=== PATIENT | male | born 1975 | race Caucasian/White ===

== ENCOUNTER 2024-06-13 19:55 | Emergency (ER) | payer MEDICAID, SELFPAY ==
[2024-06-13 19:56] VITALS: BP 133/57; PULSE 66; RESP 18; TEMP 37.1; O2SAT 99; BMI 28.8
[2024-06-13 20:14] VITALS: O2SAT 99
--- NOTE | 2024-06-13 20:14 | RAD_ITS ---
EXAM: XR CHEST, 1 VIEW CLINICAL INDICATION: chest pain TECHNIQUE: Frontal view of the chest. COMPARISON: No relevant prior studies available. FINDINGS: LUNGS AND PLEURAL SPACES: Subtle bibasilar pulmonary opacities may be atelectasis, scarring, or pneumonia. No pneumothorax. No effusion. HEART: No significant abnormality. Cardiac silhouette not enlarged. MEDIASTINUM: Central airways and mediastinal contour are unremarkable. BONES/JOINTS: No significant abnormality. No acute fracture. SOFT TISSUES: No significant abnormality. RAD/Chest 1 View (Portable) IMPRESSION: Subtle bibasilar pulmonary opacities may be atelectasis, scarring, or pneumonia. Electronically Signed: Orion Walls DO at 21:04 EST ,
--- NOTE | 2024-06-13 20:14 | EKG12_ITS ---
Test Reason : CP Blood Pressure : */* mmHG Vent. Rate : 66 BPM Atrial Rate : 66 BPM P-R Int : 162 ms QRS Dur : 84 ms QT Int : 390 ms P-R-T Axes : 36 46 32 degrees QTcB Int : 408 ms Normal sinus rhythm Normal ECG Confirmed by JEREMY MEJIAS, MERLYN ([id number]), news assignment editor TIFFANIE GUTIERREZ ([id number]) on 06/14/2024 8:58:17 AM Referred By: BB Confirmed By: MERLYN LUNA MD
[2024-06-13 20:26] LABS: Absolute Lymphocyte Count 3.01 X10^3/uL (0.83-4.51); Absolute Neutrophil Count 3.6 X10^3/uL (2.0-7.7); Basophil# 0.03 X10^3/uL; Basophil% 0.4 % (0-1); Eosinophil# 0.21 X10^3/uL; Eosinophils% 2.7 % (0-5); Hematocrit 38.2 % (40-54); Hemoglobin 12.9 g/dL (13.0-16.5); Lymphocyte # 3.01 X10^3/ul (0.83-4.51); Lymphocyte % 38.7 % (19-41); Mean Corp Hgb Conc 33.8 g/dL (32-36); Mean Corpuscular Hgb 31.6 pg (27.0-32.0); Mean Corpuscular Volume 93.6 fL (80-94); Mean Platelet Vol. 8.6 fl (6.2-12.0); Monocyte# 0.91 X10^3/uL; Monocyte% 11.7 % (0-10); NRBC Flagged by Analyzer 0 % (0-5); Neutrophil # 3.58 X10^3/uL (2.7-7.7); Platelet Count 246 K/mm3 (150-450); RBC Distribution Width CV 14.2 % (11.6-14.6); RBC Distribution Width SD 49.1 fl (35.1-43.9); Red Blood Count 4.08 M/mm3 (4.6-6.2); White Blood Count 7.8 K/mm3 (4.4-11.0)
[2024-06-13 20:45] LABS: Anion Gap 4 (5-15); BUN 12 mg/dL (7-18); BUN/Creat Ratio 14.7 RATIO (10-20); Calcium,Total 9.4 mg/dL (8.5-10.1); Chloride 106 mmol/L (98-107); Creatinine, Serum 0.81 mg/dL (0.70-1.30); EST Glomerular Filtration Rate 107 mL/min (>60); Est Glom Filt Rate - Afr Amer 130 mL/min (>60); Estimated Creatinine Clearance 125.95 ml/min; Glucose 79 mg/dL (74-106); Potassium 4.1 mmol/L (3.5-5.1); Sodium Level 139 mmol/L (136-145); Troponin-I HS (w/2H Reflex) 3 pg/mL (3.0-78.0)
[2024-06-13 20:56] VITALS: BP 115/100; PULSE 71; RESP 18; O2SAT 98
[2024-06-13 21:00] VITALS: BP 106/74; PULSE 68; RESP 16; O2SAT 97
[2024-06-13 21:04] LABS: D-Dimer Quantitative (DVT/PE) 0.27 FEU/ug/m (0.27-0.49)
[2024-06-13 22:00] VITALS: BP 118/94; PULSE 55; RESP 19; O2SAT 95
--- NOTE | 2024-06-13 22:08 | EDS_ITS ---
HPI History of Present Illness Chief Complaint: Chest Pain Narrative Narrative: 49-year-old male [facility] from [facility] facility with complaint of right- sided chest pain. He states that he has pain upon inhalation and exhalation. Is described as sharp and stabbing. It started today at around 3:15 PM, over 7 hours ago. He did receive Maalox at around 315 which may have helped him. He denies any other symptoms or exacerbating or alleviating factors. Patient does have history of schizophrenia and tardive dyskinesia, recently started Austedo 4 days ago. [facility] Medical History Generalized anxiety disorder Bipolar II disorder Delusional disorder Schizophrenia Psychotic disorder Peripheral vascular disease Epilepsy TBI (traumatic brain injury) Major depressive disorder Dementia Home Medications ?Medication ?Instructions ?Recorded ?Last Taken ?Type atorvastatin 80 mg tablet (Lipitor) 80 mg PO DAILY 06/13/24 Unknown History benztropine 1 mg tablet 1 mg PO BID 06/13/24 Unknown History deutetrabenazine 12 mg tablet 12 mg PO DAILY tardive dyskinesia 06/13/24 Unknown History (Austedo) deutetrabenazine 18 mg 18 mg PO DAILY TD 06/13/24 Unknown History tablet,extended release 24 hr (Austedo XR) lamotrigine 200 mg tablet 200 mg PO DAILY 06/13/24 Unknown History (Lamictal) levetiracetam 750 mg tablet 750 mg PO BID 06/13/24 Unknown History (Keppra) lorazepam 0.5 mg tablet (Ativan) 0.5 mg PO BID agitation 06/13/24 Unknown History medroxyprogesterone 10 mg tablet 10 mg PO DAILY 06/13/24 Unknown History (Provera) risperidone 0.5 mg tablet 0.5 mg PO BID 06/13/24 Unknown History (Risperdal) Social History Smoking Status: Current every day smoker tobacco type: cigarettes ROS ROS ED ROS Narrative Review of systems mildly limited to TBI and psychiatric disorder. Patient endorses right-sided chest pain that can be pleuritic in nature. No nausea or vomiting, no shortness of breath, no fevers or chills, no cough. EXAM Physical Exam Narrative Exam Narrative: Afebrile. Vital signs noted. Nontoxic-appearing. Cardiovascular examination feels a regular rate and rhythm. Lungs are clear to auscultation bilaterally. Abdomen soft nontender with normal active bowel sounds. Neurological examination is nonfocal and nonlateralizing. Slight speech impediment, but patient understandable. Const Vital Signs: 06/13/24 19:56 06/13/24 20:14 06/13/24 20:56 Temperature 98.8 F Temperature Source Oral Pulse Rate 66 71 Respiratory Rate 18 18 Respiratory Effort Blood Pressure 133/57 H 115/100 H Blood Pressure Mean 82 105 Pulse Ox 99 99 98 Oxygen Delivery Method Room Air Room Air Room Air 06/13/24 21:00 06/13/24 21:19 06/13/24 22:00 Temperature Temperature Source Pulse Rate 68 55 L Respiratory Rate 16 19 H Respiratory Effort Normal Non-Labored Blood Pressure 106/74 118/94 H Blood Pressure Mean 84 102 Pulse Ox 97 95 Oxygen Delivery Method Room Air Room Air 06/13/24 23:00 Temperature Temperature Source Pulse Rate 72 Respiratory Rate 18 Respiratory Effort Blood Pressure 124/95 H Blood Pressure Mean 104 Pulse Ox 99 Oxygen Delivery Method Room Air Heart Score History: Slightly/Non-Suspicious ECG: Normal Age: >45 - <65 years Risk Factors: 1 or 2 Risk Factors Troponin: </= Normal Limit Score: 2 MDM MDM MDM Narrative Medical decision making narrative: Differential diagnosis includes but not limited to ACS versus pulmonary embolism. I have low suspicion for pneumonia because history and physical does not support this. Chest pain workup was pursued. EKG obtained and interpreted by myself independently as normal sinus rhythm at 66 bpm without ectopy or acute ST changes. No STEMI. I reviewed his protocol laboratory work and he has normal white count of 7.8, hemoglobin 12.9 with hematocrit 38.2, platelet count normal at 246. Electrolyte panel is grossly unremarkable except for anion gap low at 4 with BUN normal at 12 and creatinine 0.81, glucose 79. I added a D- dimer and it is normal at 0.27 so I doubt pulmonary embolism. He is also PERC negative. Pulse ox 99% on room air without evidence of hypoxia. Initial high- sensitivity troponin is 3 with repeat at 4 for a negative delta troponin. Chest x-ray 1 view interpreted by myself independently shows no acute process. No pneumonia, no pneumothorax. I do not feel antibiotics are indicated. I reviewed the radiology report which confirms my independent interpretation and comments on bibasilar atelectasis versus scarring. At this point in time, I feel he can be discharged to follow-up with his primary care provider. Return instructions reviewed. Disposition is discharged home in stable condition. History & Record Review Discussion w/independent historian: Patient and Other (ST NA) Additional record(s) reviewed:: No prior records Lab Data Attestation: I reviewed the patient's lab results. Labs: Laboratory Results - last 24 hr 06/13/24 06/13/24 19:55 22:25 WBC 7.8 RBC 4.08 L Hgb 12.9 L Hct 38.2 L MCV 93.6 MCH 31.6 MCHC 33.8 RDW Std Deviation 49.1 H RDW Coeff of Ric 14.2 Plt Count 246 MPV 8.6 Immature Gran % (Auto) 0.500 Neut % (Auto) 46.0 L Lymph % (Auto) 38.7 [place] % (Auto) 11.7 H Eos % (Auto) 2.7 Baso % (Auto) 0.4 Absolute Neuts (auto) 3.6 Absolute Lymphs (auto) 3.01 Nucleated RBC % 0 D-Dimer Quant (PE/DVT) 0.27 Sodium 139 Potassium 4.1 Chloride 106 Carbon Dioxide 29.0 Anion Gap 4 L BUN 12 Creatinine 0.81 Estim Creat Clear Calc 125.95 Est GFR (MDRD) Af Amer 130 Est GFR (MDRD) Non-Af 107 BUN/Creatinine Ratio 14.7 Glucose 79 Calcium 9.4 Troponin I High Sens 3 4 Radiography Diagnostic Testing: Clinical Impression(s) from Imaging Studies Chest X-Ray 06/13/24 20:14 IMPRESSION: Subtle bibasilar pulmonary opacities may be atelectasis, scarring, or pneumonia. Electronically Signed: Oroin Walls DO at 21:04 EST , Discharge Plan Triage Chief Complaint: Chest Pain ED Provider: Tomas Vazquez Dx/Rx/DC Orders Clinical Impression: Chest pain, Pleuritic pain Instructions: ED Chest Pain, Uncertain Cause Prescriptions: No Action lorazepam [Ativan] 0.5 mg tablet 0.5 mg PO BID Austedo 12 mg tablet 12 mg PO DAILY Austedo XR 18 mg tablet extended release 24 hr 18 mg PO DAILY benztropine 1 mg tablet 1 mg PO BID lamotrigine [Lamictal] 200 mg tablet 200 mg PO DAILY levetiracetam [Keppra] 750 mg tablet 750 mg PO BID atorvastatin [Lipitor] 80 mg tablet 80 mg PO DAILY medroxyprogesterone [Provera] 10 mg tablet 10 mg PO DAILY risperidone [Risperdal] 0.5 mg tablet 0.5 mg PO BID Primary Care Provider: Good Wharton Referrals: Good Wharton MD [Primary Care Provider] - 3-5 Days if not improving Print Language: Maori Disposition Disposition: Custodial Facility Discharge Location: [facility] [place]
--- NOTE | 2024-06-13 22:20 | ED.RN ---
Spoke to Bella VASQUEZ from [facility] facility to provide a patient update. Questions/concerns answered
[2024-06-13 22:22] LABS: Reflex Troponin-HS? (from REC) Y
[2024-06-13 22:53] LABS: Troponin-I HS 4 pg/mL (3.0-78.0)
[2024-06-13 23:00] VITALS: BP 124/95; PULSE 72; RESP 18; O2SAT 99
[2024-06-14] VITALS: BP 96/58; PULSE 75; RESP 20; O2SAT 97
--- NOTE | 2024-06-14 00:09 | ED.RN ---
Spoke to Bella VASQUEZ from care facility to provide update. Per Dr. Luke, pt okay to continue Austedo as normal. Questions/concerns answered
[2024-06-14 00:11] VITALS: BP 96/58; PULSE 61; RESP 10; TEMP 37.1; O2SAT 97
[2024-06-14 01:00] VITALS: BP 90/65; PULSE 64; RESP 14; O2SAT 95
== END 2024-06-14 02:06 | disposition skilled nursing facility (03) ==
PROVIDERS: Emergency Provider Emergency Medicine; PCP Family Medicine; Visit Provider Emergency Medicine
DX: R07.81 Pleurodynia (principal); F31.81 Bipolar II disorder; G40.909 Epilepsy, unspecified, not intractable, without status epilepticus; Z79.899 Other long term (current) drug therapy; F17.210 Nicotine dependence, cigarettes, uncomplicated
CPT/HCPCS: 71045; 80048; 84484; 85025; 85379; 93005; 99285; A4216

== ENCOUNTER → 2024-07-20 | Outpatient (CLI) | payer MEDICAID, SELFPAY ==
--- NOTE | 2024-07-20 16:42 | STRESSREP ---
Stress Test Report Exercise stress test. 49-year-old man with a history of chest pain Stress protocol: Resting EKG demonstrates normal sinus rhythm with a rate of 63 bpm resting blood pressure is 116/64 mmHg. The patient exercised according to the regular Ravi protocol for a total duration of 3 minutes and 26 seconds attaining a maximum heart rate of 162 bpm which was 94% of maximum predicted heart rate; the maximum workload was 5.6 metabolic equivalents. At rest there were no ST or T wave changes noted to suggest ischemia and at peak exercise upsloping ST changes only were noted which did not meet the criteria for ischemia. No clinical angina was noted the test was terminated due to the target heart rate being achieved/fatigue. The peak blood pressure was 150/70 mmHg. Rate-pressure product was 23,500. Conclusion: Exercise stress test with no definitive EKG changes for ischemia at a moderate workload No arrhythmias noted
== END | disposition home or self-care (01) ==
LOC: CVS 12:02
PROVIDERS: PCP Family Medicine; Referring Provider Family Medicine; Visit Provider Family Medicine
DX: R07.9 Chest pain, unspecified (principal)
CPT/HCPCS: 93017